=== PATIENT | female | born 1995 ===

== ENCOUNTER 2021-08-07 08:17 | Outpatient (CLI) | payer OTHER | END 2021-08-07 08:22 | disposition home or self-care (01) | LOC: RAD 08:17 | PROVIDERS: ATTEND General Practice | DX: R07.0 Pain in throat (principal) ==

== ENCOUNTER 2021-08-20 09:06 | Outpatient (CLI) | payer OTHER | END 2021-08-20 09:14 | disposition home or self-care (01) | LOC: TOM 09:06 | PROVIDERS: ATTEND Otolaryngology Otolaryngology/Facial Plastic Surgery | DX: R59.0 Localized enlarged lymph nodes (principal); J38.4 Edema of larynx ==